=== PATIENT | male | born 1990 | race African-American/Black ===

== ENCOUNTER 2022-02-01 01:45 | Inpatient (IN) | payer BC ==
[~2022-02-01] VITALS: Ht 185.4 cm; Wt 112.2 kg
--- NOTE | 2022-02-01 02:21 | PHYS DOC ---
General Adult HPI: HPI: Patient is a 31 year old male who presents with chest pain, which awoke him from sleep, about 2 hours prior to arrival. He describes left-sided chest pain, rating to his back. He describes the pain as an ache. He denies any pleuritic pain. He reports mild shortness of breath. He denies dizziness or diaphoresis. He denies abdominal pain. He has no pain at present. He has never previously experienced the same type of chest pain. He reports that he has had diffuse muscle aches since he began vigorously working out lifting heavy weights earlier this week. He had not worked out in many years, but he was trying to become healthy. He reports that his father had a heart transplant when he was young, though this sounds like this may been related to some sort of infectious cardiomyopathy, and he reports that his paternal uncle had an [place] when he was in his early 30s. The patient does not currently her primary care physician, has not been seen by a PCP in some time. He denies recent travel, surgery, hospitalization or prolonged immobilization. He denies calf swelling or pain. Review of Systems: Review of Systems: Constitutional: Denies fever or chills. [] Eyes: Denies change in visual acuity. [] HENT: Denies nasal congestion or sore throat. [] Respiratory: Denies cough or shortness of breath. [] Cardiovascular: Chest pain. No peripheral edema. No syncope. GI: Denies abdominal pain, nausea, vomiting, or diarrhea : Denies urinary symptom Musculoskeletal: He does report some diffuse myalgias. No focal neck or back pain. No focal joint pain or swelling. Integument: Denies rash. [] Neurologic: Denies headache, focal weakness or sensory changes. Denies dizziness or syncope. Psychiatric: Denies depression or anxiety. [] Heart Score: C/O Chest Pain: Yes HEART Score for Chest Pain: HEART Score for Chest Pain Response (Comments) Value History Slighlty/Non-Suspicious 0 ECG Normal 0 Age < 45 0 Risk Factors 1 or 2 Risk Factors 1 Troponin >1-<3x Normal Limit 1 Total 2 Risk Factors: Risk Factors: DM, Current or recent (<one month) smoker, HTN, HLP, family history of CAD, obesity. Risk Scores: Score 0 - 3: 2.5% MACE over next 6 weeks - Discharge Home Score 4 - 6: 20.3% MACE over next 6 weeks - Admit for Clinical Observation Score 7 - 10: 72.7% MACE over next 6 weeks - Early Invasive Strategies Physical Exam: PE: Constitutional: Well developed, well nourished, no acute distress, non-toxic appearance. [] HENT: Normocephalic, atraumatic, bilateral external ears normal, oropharynx moist, no oral exudates, nose normal. [] Eyes: PERRLA, EOMI, conjunctiva normal, no discharge. [] Neck: Normal range of motion, no tenderness, supple, no stridor. [] Cardiovascular:Heart rate regular rhythm, no murmur [] Lungs & Thorax: Bilateral breath sounds clear to auscultation [] Abdomen: Bowel sounds normal, soft, no tenderness, no masses, no pulsatile masses. [] Skin: Warm, dry, no erythema, no rash. [] Back: No tenderness, no CVA tenderness. [] Extremities: No tenderness, no cyanosis, no clubbing, ROM intact, no edema. [] Neurologic: Alert and oriented X 3, normal motor function, normal sensory function, no focal deficits noted. [] Psychologic: Affect normal, judgement normal, mood normal. [] EKG: EKG: EKG is interpreted at 0235 Rhythm is sinus Rate is 87 bpm [place] is normal No STEMI Radiology/Procedures: Radiology/Procedures: IMAGING REPORT Signed PATIENT: JONAH SERRATO ACCOUNT: [id number] : 1990 LOCATION: ER AGE: 31 SEX: M EXAM STATUS: PRE ER ORD. PHYSICIAN: ESTEBAN RUFF DO REASON: chest pain PROCEDURE: PORTABLE CHEST 1V EXAMINATION: XR CHEST 1V CLINICAL HISTORY: Chest pain. EXAM DATE/TIME: 02/01/2022 2:38 AM COMPARISON: None FINDINGS: Lines, Tubes, and Devices: None. Cardiomediastinal Silhouette: Within normal limits. Lungs and Pleura: No evidence of focal airspace consolidation or pleural effusion. Pulmonary vasculature unremarkable. Bones and Soft Tissues: No acute osseous abnormality. IMPRESSION: No evidence of acute cardiopulmonary abnormality. Electronically signed by: Norbert Hamilton DO (02/01/2022 4:13 AM) GYPSY DICTATED and SIGNED BY: NORBERT HAMILTON DO DATE: 02/01/22411 IMAGING REPORT Signed PATIENT: JONAH SERRATO ACCOUNT: [id number] : 1990 LOCATION: ER AGE: 31 SEX: M EXAM STATUS: PRE ER ORD. PHYSICIAN: ESTEBAN RUFF DO REASON: chest pain, elevated trop and d dimer, omni 350 100 ml iv PROCEDURE: CT ANGIOGRAPHY CHEST EXAMINATION: CTA CHEST CLINICAL HISTORY: Chest pain, elevated trop and d dimer. Technique: Spiral CT acquisition of the chest from the thoracic inlet to the upper abdomen following IV contrast with coronal and sagittal reformatted images also provided for review. 3D maximum intensity projection images also performed. CT Dose Reduction Employed: One or more of the following individualized dose reduction techniques were utilized for this examination: 1. Automated exposure control 2. Adjustment of the mA and/or kV according to patient size 3. Use of iterative reconstruction technique. COMPARISON: Chest radiograph same day FINDINGS: Pulmonary Vasculature: No evidence of main, lobar, or definite segmental pulmonary arterial thrombus. Lung Parenchyma, Pleura, and Airways: No focal consolidation. No pleural effusion. Central airways patent. Lower Neck, Lymph Nodes, and Mediastinum: Visualized thyroid gland within normal limits. Mediastinal and right hilar old calcified granulomas. Heart, Pericardium, and Thoracic Vessels: Cardiac chambers normal in size. No pericardial effusion. Thoracic aorta within normal limits. No coronary artery atherosclerotic calcifications are noted, although the study is not optimized for coronary assessment. Bones and Soft Tissues: No evidence of acute osseous abnormality. Upper Abdomen: Partially visualized upper abdomen unremarkable. IMPRESSION: No evidence of main, lobar, or definite segmental pulmonary embolism. Electronically signed by: Norbert Hamilton DO (02/01/2022 5:22 AM) [facility] DICTATED and SIGNED BY: NORBERT HAMILTON DO DATE: 02/01/22517 Course & Med Decision Making: Course & Med Decision Making Pertinent Labs and Imaging studies reviewed. (See chart for details) The patient's pain remained resolved here. He is given p.o. aspirin. His initial troponin is elevated, though CPK came back markedly elevated. This is likely secondary to vigorous exercise. I ordered 2 L of IV fluids down here, he was taken to the floor before they were initiated, and major the nurse contacted the floor to make sure that these were given. I ordered maintenance fluids for the floor. Serial CPK, BMP and troponin assays are ordered and pending at this time. I have discussed the findings, differential diagnosis and plan of care with him. I recommended hospitalization. He verbalizes understanding. He is accepted for admission by Dr. Tomas. Dragon Disclaimer: Tali Disclaimer: This electronic medical record was generated, in whole or in part, using a voice recognition dictation system. Departure Departure Impression: Primary Impression: Chest pain Qualified Codes: R07.9 - Chest pain, unspecified Additional Impressions: Elevated troponin Rhabdomyolysis Qualified Codes: M62.82 - Rhabdomyolysis Disposition: ADMITTED INPATIENT Admitting Physician: LORI (Dr. Tomas) Condition: STABLE SPEEDYESTEBAN NEVAREZ DO Feb 01, 2022 02:21
[2022-02-01] MEDS ORDERED: KETOROLAC 15 MG/ML VIAL. IVP ONE (03:00)
[2022-02-01 03:03] LABS: BASO # 0.1 x10^3/uL (0.0-0.2); BASO % 1 % (0-3); EOS # 0.1 x10^3/uL (0.0-0.7); EOS % 2 % (0-3); HEMATOCRIT 45.1 % (39.0-53.0); HEMOGLOBIN 15.3 g/dL (13.0-17.5); LYMPH # 2.7 x10^3/uL (1.0-4.8); LYMPH % 33 % (24-48); MEAN CORPUSCULAR HEMOGLOBIN 30 pg (25-35); MEAN CORPUSCULAR HGB CONC 34 g/dL (31-37); MEAN CORPUSCULAR VOLUME 89 fL (79-100); MONO % 12 % (0-9); NEUT # 4.3 x10^3/uL (1.8-7.7); NEUT % 53 % (31-73); PLATELET COUNT 209 x10^3/uL (140-400); RED BLOOD COUNT 5.08 x10^6/uL (4.30-5.70); RED CELL DISTRIBUTION WIDTH 13.1 % (11.5-14.5); WHITE BLOOD COUNT 8.1 x10^3/uL (4.0-11.0)
[2022-02-01 03:15] LABS: CALCIUM 9.1 mg/dL (8.5-10.1); CREATININE 1.3 mg/dL (0.7-1.3); GFR 64.4; POTASSIUM 3.9 mmol/L (3.5-5.1)
[2022-02-01 03:26] LABS: ALBUMIN/GLOBULIN RATIO 1.1 (1.0-1.7); MAGNESIUM 2.3 mg/dL (1.8-2.4); TOTAL BILIRUBIN 0.5 mg/dL (0.2-1.0); TOTAL PROTEIN 7.6 g/dL (6.4-8.2)
--- NOTE | 2022-02-01 03:59 | EKG ---
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
[2022-02-01] MEDS ORDERED: CONTRAST GIVEN. MC PRN (04:00)
--- NOTE | 2022-02-01 04:15 | RAD ---
EXAMINATION: XR CHEST 1V CLINICAL HISTORY: Chest pain. EXAM DATE/TIME: 02/01/2022 2:38 AM COMPARISON: None FINDINGS: Lines, Tubes, and Devices: None. Cardiomediastinal Silhouette: Within normal limits. Lungs and Pleura: No evidence of focal airspace consolidation or pleural effusion. Pulmonary vasculat ure unremarkable. Bones and Soft Tissues: No acute osseous abnormality. IMPRESSION: No evidence of acute cardiopulmonary abnormality. Electronically signed by: Norbert Mann DO (02/01/2022 4:13 AM) TIM
[2022-02-01] MEDS ORDERED: ASPIRIN ENTERIC COATED 325 MG TABLET.DR. PO ONE (04:30)
[2022-02-01] MEDS ORDERED: IOHEXOL 350 MG/ML 100 ML VIAL. IV ONE (04:30)
--- NOTE | 2022-02-01 05:24 | RAD ---
EXAMINATION: CTA CHEST CLINICAL HISTORY: Chest pain, elevated trop and d dimer. Technique: Spiral CT acquisition of the chest from the thoracic inlet to the upper abdomen following IV contrast with coronal and sagittal reformatted images also provided for review. 3D maximum intensi ty projection images also performed. CT Dose Reduction Employed: One or more of the following individualized dose reduction techniques wer e utilized for this examination: 1. Automated exposure control 2. Adjustment of the mA and/or kV ac cording to patient size 3. Use of iterative reconstruction technique. COMPARISON: Chest radiograph same day FINDINGS: Pulmonary Vasculature: No evidence of main, lobar, or definite segmental pulmonary arterial thrombus. Lung Parenchyma, Pleura, and Airways: No focal consolidation. No pleural effusion. Central airways pa tent. Lower Neck, Lymph Nodes, and Mediastinum: Visualized thyroid gland within normal limits. Mediastinal and right hilar old calcified granulomas. Heart, Pericardium, and Thoracic Vessels: Cardiac chambers normal in size. No pericardial effusion. T horacic aorta within normal limits. No coronary artery atherosclerotic calcifications are noted, alth ough the study is not optimized for coronary assessment. Bones and Soft Tissues: No evidence of acute osseous abnormality. Upper Abdomen: Partially visualized upper abdomen unremarkable. IMPRESSION: No evidence of main, lobar, or definite segmental pulmonary embolism. Electronically signed by: Norbert Mann DO (02/01/2022 5:22 AM) [facility]
[2022-02-01] MEDS ORDERED: IV NORMAL SALINE 1000ML BAG 1,000 ML IV ONE ×3 (06:00→06:30)
[2022-02-01] MEDS ORDERED: ONDANSETRON PF 4 MG/2 ML VIAL. IVP PRN ×2 (06:15→07:45)
[2022-02-01] MEDS ORDERED: ACETAMINOPHEN 325 MG TABLET. PO PRN ×2 (06:15→07:45)
[2022-02-01 06:37] VITALS: BP 125/80
[2022-02-01] MEDS ORDERED: fentaNYL PF VIAL 100 MCG/2 ML VIAL IVP PRN (07:45)
[2022-02-01] MEDS ORDERED: traMADol 50 MG TABLET PO PRN (07:45)
[2022-02-01] MEDS ORDERED: NITROGLYCERIN SUBLINGUAL 0.4 MG BOTTLE OF 25. SL PRN (07:45)
--- NOTE | 2022-02-01 08:53 | PDOC1 ---
History and Physical Date of Service: DOS: DATE: 02/01/22 TIME: 08:46 Chief Complaint: Chief Complain: Chest pain. History of Present Illness: HPI: 31-year-old male with no significant past medical history who comes in from difficulty sleeping due to chest pain 2 hours before coming to the ED. Patient describes chest pain as left-sided and radiating to his back. Achiness in nature and denies any chest pain with shortness of breath or deep inspiration. Denies any fevers or abdominal pain. Patient stated that he started working out earlier this week on Wednesday by lifting weights at the gym and he was trying to become more healthy. Patient does have a familial history of father having a heart transplant when he was young due to infectious cardiomyopathy and he had an uncle had an [place] when his early 30s. Patient also had old wild night on Wednesday night going out and drinking and also having cocaine. He has only been sleeping 5 hours per night. Patient does dabble in protein supplements at [employer] with his protein shakes. Denies any intentional overdose or suicidal intentions. Denies any recent travel, surgery or immobilization or calf pain. Past Medical/Surgical History: PMH/PSH: No reported past medical or surgical history Allergies: Allergies: Coded Allergies: No Known Drug Allergies (Unverified , 02/01/22) Family History: Family History: Reviewed with no relative findings in the chart Social History: Social History: Denies any alcohol, drug or tobacco abuse Current Medications: Current Medications Current Medications Ketorolac Tromethamine (Toradol 15mg Vial) 15 mg 1X ONCE IVP ; Start 02/01/22 at 03:00; Stop 02/01/22 at 03:01; Status DC Iohexol (Omnipaque 350 Mg/ml) 75 ml 1X ONCE IV Last administered on 02/01/22at 04:57; Start 02/01/22 at 04:30; Stop 02/01/22 at 04:31; Status DC Aspirin (Ecotrin) 325 mg 1X ONCE PO Last administered on 02/01/22at 04:07; Start 02/01/22 at 04:30; Stop 02/01/22 at 04:31; Status DC Info (CONTRAST GIVEN -- Rx MONITORING) 1 each PRN DAILY PRN MC SEE COMMENTS; Start 02/01/22 at 04:00; Stop 02/03/22 at 03:59 Sodium Chloride 1,000 ml @ 1,000 mls/hr 1X ONCE IV ; Start 02/01/22 at 06:00; Stop 02/01/22 at 06:59; Status DC Sodium Chloride 1,000 ml @ 1,000 mls/hr 1X ONCE IV ; Start 02/01/22 at 06:30; Stop 02/01/22 at 07:29; Status DC Ondansetron HCl (Zofran) 4 mg PRN Q8HRS PRN IVP NAUSEA/VOMITING 1ST CHOICE; Start 02/01/22 at 06:15; Stop 02/01/22 at 07:34; Status DC Acetaminophen (Tylenol) 650 mg PRN Q4HRS PRN PO MILD PAIN / TEMP > 100.3'F; Start 02/01/22 at 06:15 Sodium Chloride 1,000 ml @ 200 mls/hr 1X ONCE IV ; Start 02/01/22 at 06:30; Stop 02/01/22 at 11:29 Sodium Chloride 1,000 ml @ 200 mls/hr Q5H IV ; Start 02/01/22 at 07:30; Stop 02/02/22 at 08:29 Ondansetron HCl (Zofran) 4 mg PRN Q4HRS PRN IVP NAUSEA/VOMITING 1ST CHOICE; Start 02/01/22 at 07:45 Acetaminophen (Tylenol) 650 mg PRN Q6HRS PRN PO MILD PAIN / TEMP > 100.3'F; Start 02/01/22 at 07:45 Aspirin (Ecotrin) 81 mg DAILYWBKFT PO ; Start 02/02/22 at 08:00 Fentanyl Citrate (Fentanyl 2ml Vial) 25 mcg PRN Q3HRS PRN IVP SEVERE PAIN 7-10; Start 02/01/22 at 07:45 Nitroglycerin (Nitrostat) 0.4 mg PRN Q5MIN PRN SL CHEST PAIN; Start 02/01/22 at 07:45 Tramadol HCl (Ultram) 50 mg PRN Q6HRS PRN PO PAIN; Start 02/01/22 at 07:45 ROS: Review of Systems Review of System REVIEW OF SYSTEMS: GENERAL: Denies weakness SKIN: No bruising, hair changes or rashes. EYES: No blurred, double or loss of vision. NOSE AND THROAT: No history of nosebleeds, hoarseness or sore throat. HEART: Positive for chest pain LUNGS: Denies cough, hemoptysis, wheezing or shortness of breath. GASTROINTESTINAL: Denies changes in appetite, nausea, vomiting, diarrhea or constipation. GENITOURINARY: No history of frequency, urgency, hesitancy or nocturia. NEUROLOGIC: Denies history of numbness, tingling, or tremor. PSYCHIATRIC: No history of panic, anxiety or depression. ENDOCRINE: No history of heat or cold intolerance, polyuria or polydipsia. EXTREMITIES: Denies joint pain, pain on walking or stiffness. Physical Exam: Vital Signs: Vital Signs Date Time Temp Pulse Resp B/P (MAP) Pulse Ox O2 Delivery O2 Flow Rate FiO2 02/01/22 06:37 97.9 79 20 125/80 (95) 98 Room Air 97.9 Physcial Exam: General: Well developed, well nourished, no acute distress, well appearing HEENT: Pupils equally round and reactive to light, EOMI, no discharge, normal conjunctiva Neck: Supple, no nuchal rigidity, no JVD, trachea midline, no tenderness Cardiac: RRR, no murmurs, no gallops, no rubs Chest/Lungs: CTAB, no wheeze, no rhonchi, no crackles Abdomen: soft, non-distended, no guarding, no peritoneal signs, non-tender Back: No tenderness Extremities: no edema, pulses intact, non-tender,capillary refill <3 sec bilateral upper and lower extremities, Neuro: Alert and oriented x 4, no focal deficits, normal speech Labs: Labs: Laboratory Tests Test 02/01/22 02:53 02/01/22 05:40 White Blood Count 8.1 x10^3/uL (4.0-11.0) Red Blood Count 5.08 x10^6/uL (4.30-5.70) Hemoglobin 15.3 g/dL (13.0-17.5) Hematocrit 45.1 % (39.0-53.0) Mean Corpuscular Volume 89 fL (79-100) Mean Corpuscular Hemoglobin 30 pg (25-35) Mean Corpuscular Hemoglobin Concent 34 g/dL (31-37) Red Cell Distribution Width 13.1 % (11.5-14.5) Platelet Count 209 x10^3/uL (140-400) Neutrophils (%) (Auto) 53 % (31-73) Lymphocytes (%) (Auto) 33 % (24-48) Monocytes (%) (Auto) 12 % (0-9) Eosinophils (%) (Auto) 2 % (0-3) Basophils (%) (Auto) 1 % (0-3) Neutrophils # (Auto) 4.3 x10^3/uL (1.8-7.7) Lymphocytes # (Auto) 2.7 x10^3/uL (1.0-4.8) Monocytes # (Auto) 1.0 x10^3/uL (0.0-1.1) Eosinophils # (Auto) 0.1 x10^3/uL (0.0-0.7) Basophils # (Auto) 0.1 x10^3/uL (0.0-0.2) D-Dimer (Karine) 4.75 ug/mlFEU (0.00-0.50) Sodium Level 139 mmol/L (136-145) Potassium Level 3.9 mmol/L (3.5-5.1) Chloride Level 103 mmol/L (98-107) Carbon Dioxide Level 25 mmol/L (21-32) Anion Gap 11 (6-14) Blood Urea Nitrogen 16 mg/dL (8-26) Creatinine 1.3 mg/dL (0.7-1.3) Estimated GFR (Cockcroft-Gault) 64.4 BUN/Creatinine Ratio 12 (6-20) Glucose Level 85 mg/dL (70-99) Calcium Level 9.1 mg/dL (8.5-10.1) Magnesium Level 2.3 mg/dL (1.8-2.4) Total Bilirubin 0.5 mg/dL (0.2-1.0) Aspartate Amino Transf (AST/SGOT) 2147 U/L (15-37) Alanine Aminotransferase (ALT/SGPT) 933 U/L (16-63) Alkaline Phosphatase 47 U/L (46-116) Creatine Kinase 235195 U/L (39-308) Troponin I High Sensitivity 76 ng/L (4-75) 63 ng/L (4-75) ZF-Wke-K-Type Natriuretic Peptide 11 pg/mL (0-124) Total Protein 7.6 g/dL (6.4-8.2) Albumin 4.0 g/dL (3.4-5.0) Albumin/Globulin Ratio 1.1 (1.0-1.7) Lipase 138 U/L (73-393) Laboratory Tests Test 02/01/22 02:53 02/01/22 05:40 White Blood Count 8.1 x10^3/uL (4.0-11.0) Red Blood Count 5.08 x10^6/uL (4.30-5.70) Hemoglobin 15.3 g/dL (13.0-17.5) Hematocrit 45.1 % (39.0-53.0) Mean Corpuscular Volume 89 fL (79-100) Mean Corpuscular Hemoglobin 30 pg (25-35) Mean Corpuscular Hemoglobin Concent 34 g/dL (31-37) Red Cell Distribution Width 13.1 % (11.5-14.5) Platelet Count 209 x10^3/uL (140-400) Neutrophils (%) (Auto) 53 % (31-73) Lymphocytes (%) (Auto) 33 % (24-48) Monocytes (%) (Auto) 12 % (0-9) Eosinophils (%) (Auto) 2 % (0-3) Basophils (%) (Auto) 1 % (0-3) Neutrophils # (Auto) 4.3 x10^3/uL (1.8-7.7) Lymphocytes # (Auto) 2.7 x10^3/uL (1.0-4.8) Monocytes # (Auto) 1.0 x10^3/uL (0.0-1.1) Eosinophils # (Auto) 0.1 x10^3/uL (0.0-0.7) Basophils # (Auto) 0.1 x10^3/uL (0.0-0.2) D-Dimer (Karine) 4.75 ug/mlFEU (0.00-0.50) Sodium Level 139 mmol/L (136-145) Potassium Level 3.9 mmol/L (3.5-5.1) Chloride Level 103 mmol/L (98-107) Carbon Dioxide Level 25 mmol/L (21-32) Anion Gap 11 (6-14) Blood Urea Nitrogen 16 mg/dL (8-26) Creatinine 1.3 mg/dL (0.7-1.3) Estimated GFR (Cockcroft-Gault) 64.4 BUN/Creatinine Ratio 12 (6-20) Glucose Level 85 mg/dL (70-99) Calcium Level 9.1 mg/dL (8.5-10.1) Magnesium Level 2.3 mg/dL (1.8-2.4) Total Bilirubin 0.5 mg/dL (0.2-1.0) Aspartate Amino Transf (AST/SGOT) 2147 U/L (15-37) Alanine Aminotransferase (ALT/SGPT) 933 U/L (16-63) Alkaline Phosphatase 47 U/L (46-116) Creatine Kinase 123992 U/L (39-308) Troponin I High Sensitivity 76 ng/L (4-75) 63 ng/L (4-75) QP-Uzk-Z-Type Natriuretic Peptide 11 pg/mL (0-124) Total Protein 7.6 g/dL (6.4-8.2) Albumin 4.0 g/dL (3.4-5.0) Albumin/Globulin Ratio 1.1 (1.0-1.7) Lipase 138 U/L (73-393) Images: Images PROCEDURE: CT ANGIOGRAPHY CHEST EXAMINATION: CTA CHEST CLINICAL HISTORY: Chest pain, elevated trop and d dimer. Technique: Spiral CT acquisition of the chest from the thoracic inlet to the upper abdomen following IV contrast with coronal and sagittal reformatted images also provided for review. 3D maximum intensity projection images also performed. CT Dose Reduction Employed: One or more of the following individualized dose re duction techniques were utilized for this examination: 1. Automated exposure control 2. Adjustment of the mA and/or kV according to patient size 3. Use of iterative reconstruction technique. COMPARISON: Chest radiograph same day FINDINGS: Pulmonary Vasculature: No evidence of main, lobar, or definite segmental pulmonary arterial thrombus. Lung Parenchyma, Pleura, and Airways: No focal consolidation. No pleural effusion. Central airways patent. Lower Neck, Lymph Nodes, and Mediastinum: Visualized thyroid gland within normal limits. Mediastinal and right hilar old calcified granulomas. Heart, Pericardium, and Thoracic Vessels: Cardiac chambers normal in size. No pericardial effusion. Thoracic aorta within normal limits. No coronary artery atherosclerotic calcifications are noted, although the study is not optimized for coronary assessment. Bones and Soft Tissues: No evidence of acute osseous abnormality. Upper Abdomen: Partially visualized upper abdomen unremarkable. IMPRESSION: No evidence of main, lobar, or definite segmental pulmonary embolism. PROCEDURE: PORTABLE CHEST 1V EXAMINATION: XR CHEST 1V CLINICAL HISTORY: Chest pain. EXAM DATE/TIME: 02/01/2022 2:38 AM COMPARISON: None FINDINGS: Lines, Tubes, and Devices: None. Cardiomediastinal Silhouette: Within normal limits. Lungs and Pleura: No evidence of focal airspace consolidation or pleural effusion. Pulmonary vasculature unremarkable. Bones and Soft Tissues: No acute osseous abnormality. IMPRESSION: No evidence of acute cardiopulmonary abnormality. Assessment/Plan Assessment/Plan Acute rhabdomyolysis Severe transaminitis Atypical chest pain, likely musculoskeletal rule out ACS Obesity class I Admit to hospitalist service for further management Cardiology consult Continue telemetry monitoring Nephrology consult for rhabdomyolysis Strict I's/O Avoid nephrotoxic agents Monitor urine output closely Continue aggressive IV fluid rehydration Pending hepatitis panel Trend liver enzymes Trend CK levels SCD and ambulation for DVT prophylaxis Regular diet CODE STATUS full Discussed with RN and SW Disposition inpatient management as above DPOA: Father Justifications for Admission Other Justification TAYLOR DIA MD Feb 01, 2022 08:53
[2022-02-01 09:42] LABS: BACTERIA,URINE 0 /HPF (0-FEW); RBC,URINE OCC /HPF (0-2); WBC,URINE OCC /HPF (0-4)
[2022-02-01 09:53] LABS: CALCIUM 9.1 mg/dL (8.5-10.1); CREATININE 1.3 mg/dL (0.7-1.3); GFR 77.9; POTASSIUM 4.4 mmol/L (3.5-5.1)
[2022-02-01 11:00] VITALS: BP 151/65
[2022-02-01] MEDS: IV NORMAL SALINE 1000ML BAG 1,000 ML IV SCH ×4 (11:36→22:30)
--- NOTE | 2022-02-01 12:15 | PDOC2 ---
CARDIOLOGY CONSULT NOTE DATE OF SERVICE: DATE: 02/01/22 TIME: 12:12 CHIEF COMPLAINT: Chest pain HPI: 31 y.o male admitted for rhabdo and atypical chest pain. He admits to working out heavily this last week and also 2 days prior to admission he used cocaine and drank heavily. In the setting he was admitted and initial troponin was elevated although his CK was greater than 100,000. He currently denies any anginal symptoms. Actually he was working out on a bike about 3 days ago and did not have any exertional dyspnea or chest pain. 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 He admits to using cocaine and marijuana. FAMHX: Father had a heart transplant for viral cardiomyopathy CURRENT MEDS: Current Medications Medications (Trade) Dose Ordered Sig/Alma Route PRN Reason Start Time Stop Time Status Last Admin Dose Admin Iohexol (Omnipaque 350 Mg/ml) 75 ml 1X ONCE IV 02/01/22 04:30 02/01/22 04:31 DC 02/01/22 04:57 Aspirin (Ecotrin) 325 mg 1X ONCE PO 02/01/22 04:30 02/01/22 04:31 DC 02/01/22 04:07 Sodium Chloride 1,000 ml @ 1,000 mls/hr 1X ONCE IV 02/01/22 06:00 02/01/22 06:59 DC 02/01/22 09:18 Sodium Chloride 1,000 ml @ 1,000 mls/hr 1X ONCE IV 02/01/22 06:30 02/01/22 07:29 DC 02/01/22 10:21 Sodium Chloride 1,000 ml @ 200 mls/hr Q5H IV 02/01/22 07:30 02/02/22 08:29 02/01/22 11:36 ALLERGIES: Allergies Coded Allergies Type Severity Reaction Last Updated Verified No Known Drug Allergies 02/01/22 No ROS: Negative for 10 out of 14 systems reviewed unless otherwise mentioned above in HPI PHYSICAL EXAM: Vital Signs/I&O: Vital Signs Date Time Temp Pulse Resp B/P (MAP) Pulse Ox O2 Delivery O2 Flow Rate FiO2 02/01/22 06:37 97.9 79 20 125/80 (95) 98 Room Air 97.9 Physical Exam: GEN.: No apparent distress. Alert and oriented. HEENT: Head is normocephalic, atraumatic NECK: Supple. LUNGS: Clear to auscultation. HEART: RRR, S1, S2 present. Peripheral pulses intact ABDOMEN: Soft, nontender. Positive bowel sounds. EXTREMITIES: Without any cyanosis. NEUROLOGIC: Normal speech, normal tone PSYCHIATRIC: Normal affect, normal mood. SKIN: No ulcerations DIAGNOSTIC TESTING: EKG is unremarkable Lab Laboratory Tests Test 02/01/22 02:53 02/01/22 05:40 02/01/22 08:45 02/01/22 09:10 White Blood Count 8.1 x10^3/uL (4.0-11.0) Red Blood Count 5.08 x10^6/uL (4.30-5.70) Hemoglobin 15.3 g/dL (13.0-17.5) Hematocrit 45.1 % (39.0-53.0) Mean Corpuscular Volume 89 fL (79-100) Mean Corpuscular Hemoglobin 30 pg (25-35) Mean Corpuscular Hemoglobin Concent 34 g/dL (31-37) Red Cell Distribution Width 13.1 % (11.5-14.5) Platelet Count 209 x10^3/uL (140-400) Neutrophils (%) (Auto) 53 % (31-73) Lymphocytes (%) (Auto) 33 % (24-48) Monocytes (%) (Auto) 12 % (0-9) H Eosinophils (%) (Auto) 2 % (0-3) Basophils (%) (Auto) 1 % (0-3) Neutrophils # (Auto) 4.3 x10^3/uL (1.8-7.7) Lymphocytes # (Auto) 2.7 x10^3/uL (1.0-4.8) Monocytes # (Auto) 1.0 x10^3/uL (0.0-1.1) Eosinophils # (Auto) 0.1 x10^3/uL (0.0-0.7) Basophils # (Auto) 0.1 x10^3/uL (0.0-0.2) D-Dimer (Karine) 4.75 ug/mlFEU (0.00-0.50) H Sodium Level 139 mmol/L (136-145) 142 mmol/L (136-145) Potassium Level 3.9 mmol/L (3.5-5.1) 4.4 mmol/L (3.5-5.1) Chloride Level 103 mmol/L (98-107) 102 mmol/L (98-107) Carbon Dioxide Level 25 mmol/L (21-32) 28 mmol/L (21-32) Anion Gap 11 (6-14) 12 (6-14) Blood Urea Nitrogen 16 mg/dL (8-26) 14 mg/dL (8-26) Creatinine 1.3 mg/dL (0.7-1.3) 1.3 mg/dL (0.7-1.3) Estimated GFR (Cockcroft-Gault) 64.4 77.9 BUN/Creatinine Ratio 12 (6-20) Glucose Level 85 mg/dL (70-99) 74 mg/dL (70-99) Calcium Level 9.1 mg/dL (8.5-10.1) 9.1 mg/dL (8.5-10.1) Total Bilirubin 0.5 mg/dL (0.2-1.0) Aspartate Amino Transf (AST/SGOT) 2147 U/L (15-37) H Alkaline Phosphatase 47 U/L (46-116) Creatine Kinase 690216 U/L (39-308) H 443078 U/L (39-308) H Troponin I High Sensitivity 76 ng/L (4-75) H 63 ng/L (4-75) 62 ng/L (4-75) Total Protein 7.6 g/dL (6.4-8.2) Albumin 4.0 g/dL (3.4-5.0) Albumin/Globulin Ratio 1.1 (1.0-1.7) Lipase 138 U/L (73-393) Urine Collection Type Unknown Urine Color (Auto) Light yellow Urine Turbidity Clear Urine pH (Auto) 6.0 (<5.0-8.0) Urine Specific [place] >1.050 (1.000-1.030) Urine Protein (Auto) 50 mg/dL (Negative) Urine Glucose (Auto)(UA) Negative mg/dL (Negative) Urine Ketones (Auto) 80 mg/dL (Negative) Urine Blood (Auto) Moderate (Negative) Urine Nitrite Negative (Negative) Urine Bilirubin (Auto) Negative (Negative) Urine Urobilinogen (Auto) Normal mg/dL (Normal) Urine Leukocyte Esterase (Auto) Negative (Negative) Urine RBC Occ /HPF (0-2) Urine WBC Occ /HPF (0-4) Urine Squamous Epithelial Cells Occ /LPF Urine Bacteria 0 /HPF (0-FEW) Laboratory Tests 02/01/22 02:53 02/01/22 08:45 ASSESSMENT: 1. Rhabdomyolysis 2. Polysubstance abuse PLAN: 1. No further cardiac testing necessary at this time. Continue IV fluid hydration and may discharge from a cardiac perspective when cleared by the primary service. Thank you for this consultation SELINA HAIR MD Feb 01, 2022 12:15
--- NOTE | 2022-02-01 13:15 | PDOC2 ---
CONSULT Date of Consult Date of Consult DATE: 02/01/22 TIME: 13:11 Reason for Consult Reason for Consult: Rhabdomyolysis Referring Physician Referring Physician: Genoveva Identification/Chief Complaint Chief Complaint Chest pain Source Source: Patient History of Present Illness Reason for Visit: 31-year-old male with no significant past medical history. He presented to the ER with new onset chest pain on his left side radiating to his back. He deemed it to be more of an ache than a true sharp stabbing pain. Work-up revealed extremely elevated CPK of 125,000 which is now down to 90,000. He has been evaluated by cardiology. He claims he had started a new workout regimen earlier in the week by lifting weight at the gym and becoming more healthy. He also had a wild night out on Wednesday drinking and also you may have used some cocaine. He claims a few days ago his urine was dark but has lightened up over the last few days. He does use some protein supplements. Denies any new complaints at this time. Urine has cleared up significantly by his reports. He claims to be urinating well. Past Medical History Past Medical History No past medical history Family History Family History Father had cardiomyopathy required heart transplant, uncle has heart issues, no kidney problems in the family Current Problem List Problem List Problems Medical Problems: (1) Chest pain Status: Acute (2) Elevated troponin Status: Acute (3) Rhabdomyolysis Status: Acute Current Medications Current Medications Current Medications Ketorolac Tromethamine (Toradol 15mg Vial) 15 mg 1X ONCE IVP ; Start 02/01/22 at 03:00; Stop 02/01/22 at 03:01; Status DC Iohexol (Omnipaque 350 Mg/ml) 75 ml 1X ONCE IV Last administered on 02/01/22at 04:57; Start 02/01/22 at 04:30; Stop 02/01/22 at 04:31; Status DC Aspirin (Ecotrin) 325 mg 1X ONCE PO Last administered on 02/01/22at 04:07; Start 02/01/22 at 04:30; Stop 02/01/22 at 04:31; Status DC Info (CONTRAST GIVEN -- Rx MONITORING) 1 each PRN DAILY PRN MC SEE COMMENTS; Start 02/01/22 at 04:00; Stop 02/03/22 at 03:59 Sodium Chloride 1,000 ml @ 1,000 mls/hr 1X ONCE IV Last administered on 02/01/22at 09:18; Start 02/01/22 at 06:00; Stop 02/01/22 at 06:59; Status DC Sodium Chloride 1,000 ml @ 1,000 mls/hr 1X ONCE IV Last administered on at 10:21; Start 02/01/22 at 06:30; Stop 02/01/22 at 07:29; Status DC Ondansetron HCl (Zofran) 4 mg PRN Q8HRS PRN IVP NAUSEA/VOMITING 1ST CHOICE; Start 02/01/22 at 06:15; Stop 02/01/22 at 07:34; Status DC Acetaminophen (Tylenol) 650 mg PRN Q4HRS PRN PO MILD PAIN / TEMP > 100.3'F; Start 02/01/22 at 06:15 Sodium Chloride 1,000 ml @ 200 mls/hr 1X ONCE IV ; Start 02/01/22 at 06:30; Stop 02/01/22 at 11:29; Status DC Sodium Chloride 1,000 ml @ 200 mls/hr Q5H IV Last administered on 02/01/22at 11:36; Start 02/01/22 at 07:30; Stop 02/02/22 at 08:29 Ondansetron HCl (Zofran) 4 mg PRN Q4HRS PRN IVP NAUSEA/VOMITING 1ST CHOICE; Start 02/01/22 at 07:45 Acetaminophen (Tylenol) 650 mg PRN Q6HRS PRN PO MILD PAIN / TEMP > 100.3'F; Start 02/01/22 at 07:45 Aspirin (Ecotrin) 81 mg DAILYWBKFT PO ; Start 02/02/22 at 08:00 Fentanyl Citrate (Fentanyl 2ml Vial) 25 mcg PRN Q3HRS PRN IVP SEVERE PAIN 7-10; Start 02/01/22 at 07:45 Nitroglycerin (Nitrostat) 0.4 mg PRN Q5MIN PRN SL CHEST PAIN; Start 02/01/22 at 07:45 Tramadol HCl (Ultram) 50 mg PRN Q6HRS PRN PO PAIN; Start 02/01/22 at 07:45 Active Scripts Active Reported No Known Medications Prior To Admisstion (Info) Each 1 Each MC 1X Allergies Allergies: Coded Allergies: No Known Drug Allergies (Unverified , 02/01/22) ROS Review of System Negative other than as reviewed under HPI Physical Exam Physical Exam General Appearance: Awake Alert Oriented x 3 In no Distress Eyes: VIsion Unchanged Conjunctiva Normal EN: No EN Drainage Mucous Memb. moist Neck: no JVD no JVP Supple no Thyromegaly CVS: S1 S2 no Murmur No Gallop No Rub no Edema Resp: no Rales no Rhonchi no Acc. Muscle use GI: BAS +ve NO Bruit Non Tender Non Distended : no CVA tenderness; no Suprapubic Tenderness Vital Signs Vital Signs Date Time Temp Pulse Resp B/P (MAP) Pulse Ox O2 Delivery O2 Flow Rate FiO2 02/01/22 11:00 98.1 70 16 151/65 (93) 97 Room Air 98.1 Assessment & Plan Rhabdomyolysis: Presumably associated with her current regimen. Recent alcohol use and/or cocaine use may be contributing also. Continue IV fluids as you are doing, CPKs trending downwards. Check serial CPKs. Monitor urine output marti sely which she claims is adequate at this time. Await UDS Labs Labs Laboratory Tests Test 02/01/22 02:53 02/01/22 05:40 02/01/22 08:45 02/01/22 09:10 White Blood Count 8.1 x10^3/uL (4.0-11.0) Red Blood Count 5.08 x10^6/uL (4.30-5.70) Hemoglobin 15.3 g/dL (13.0-17.5) Hematocrit 45.1 % (39.0-53.0) Mean Corpuscular Volume 89 fL (79-100) Mean Corpuscular Hemoglobin 30 pg (25-35) Mean Corpuscular Hemoglobin Concent 34 g/dL (31-37) Red Cell Distribution Width 13.1 % (11.5-14.5) Platelet Count 209 x10^3/uL (140-400) Neutrophils (%) (Auto) 53 % (31-73) Lymphocytes (%) (Auto) 33 % (24-48) Monocytes (%) (Auto) 12 % (0-9) Eosinophils (%) (Auto) 2 % (0-3) Basophils (%) (Auto) 1 % (0-3) Neutrophils # (Auto) 4.3 x10^3/uL (1.8-7.7) Lymphocytes # (Auto) 2.7 x10^3/uL (1.0-4.8) Monocytes # (Auto) 1.0 x10^3/uL (0.0-1.1) Eosinophils # (Auto) 0.1 x10^3/uL (0.0-0.7) Basophils # (Auto) 0.1 x10^3/uL (0.0-0.2) D-Dimer (Karine) 4.75 ug/mlFEU (0.00-0.50) Sodium Level 139 mmol/L (136-145) 142 mmol/L (136-145) Potassium Level 3.9 mmol/L (3.5-5.1) 4.4 mmol/L (3.5-5.1) Chloride Level 103 mmol/L (98-107) 102 mmol/L (98-107) Carbon Dioxide Level 25 mmol/L (21-32) 28 mmol/L (21-32) Anion Gap 11 (6-14) 12 (6-14) Blood Urea Nitrogen 16 mg/dL (8-26) 14 mg/dL (8-26) Creatinine 1.3 mg/dL (0.7-1.3) 1.3 mg/dL (0.7-1.3) Estimated GFR (Cockcroft-Gault) 64.4 77.9 BUN/Creatinine Ratio 12 (6-20) Glucose Level 85 mg/dL (70-99) 74 mg/dL (70-99) Calcium Level 9.1 mg/dL (8.5-10.1) 9.1 mg/dL (8.5-10.1) Magnesium Level 2.3 mg/dL (1.8-2.4) Total Bilirubin 0.5 mg/dL (0.2-1.0) Aspartate Amino Transf (AST/SGOT) 2147 U/L (15-37) Alanine Aminotransferase (ALT/SGPT) 933 U/L (16-63) Alkaline Phosphatase 47 U/L (46-116) Creatine Kinase 105923 U/L (39-308) 774987 U/L (39-308) Troponin I High Sensitivity 76 ng/L (4-75) 63 ng/L (4-75) 62 ng/L (4-75) BE-Kof-E-Type Natriuretic Peptide 11 pg/mL (0-124) Total Protein 7.6 g/dL (6.4-8.2) Albumin 4.0 g/dL (3.4-5.0) Albumin/Globulin Ratio 1.1 (1.0-1.7) Lipase 138 U/L (73-393) Urine Collection Type Unknown Urine Color (Auto) Light yellow Urine Turbidity Clear Urine pH (Auto) 6.0 (<5.0-8.0) Urine Specific [place] >1.050 (1.000-1.030) Urine Protein (Auto) 50 mg/dL (Negative) Urine Glucose (Auto)(UA) Negative mg/dL (Negative) Urine Ketones (Auto) 80 mg/dL (Negative) Urine Blood (Auto) Moderate (Negative) Urine Nitrite Negative (Negative) Urine Bilirubin (Auto) Negative (Negative) Urine Urobilinogen (Auto) Normal mg/dL (Normal) Urine Leukocyte Esterase (Auto) Negative (Negative) Urine RBC Occ /HPF (0-2) Urine WBC Occ /HPF (0-4) Urine Squamous Epithelial Cells Occ /LPF Urine Bacteria 0 /HPF (0-FEW) Test 02/01/22 11:20 Creatine Kinase 75270 U/L (39-308) Laboratory Tests Test 02/01/22 02:53 02/01/22 05:40 02/01/22 08:45 02/01/22 09:10 White Blood Count 8.1 x10^3/uL (4.0-11.0) Red Blood Count 5.08 x10^6/uL (4.30-5.70) Hemoglobin 15.3 g/dL (13.0-17.5) Hematocrit 45.1 % (39.0-53.0) Mean Corpuscular Volume 89 fL (79-100) Mean Corpuscular Hemoglobin 30 pg (25-35) Mean Corpuscular Hemoglobin Concent 34 g/dL (31-37) Red Cell Distribution Width 13.1 % (11.5-14.5) Platelet Count 209 x10^3/uL (140-400) Neutrophils (%) (Auto) 53 % (31-73) Lymphocytes (%) (Auto) 33 % (24-48) Monocytes (%) (Auto) 12 % (0-9) Eosinophils (%) (Auto) 2 % (0-3) Basophils (%) (Auto) 1 % (0-3) Neutrophils # (Auto) 4.3 x10^3/uL (1.8-7.7) Lymphocytes # (Auto) 2.7 x10^3/uL (1.0-4.8) Monocytes # (Auto) 1.0 x10^3/uL (0.0-1.1) Eosinophils # (Auto) 0.1 x10^3/uL (0.0-0.7) Basophils # (Auto) 0.1 x10^3/uL (0.0-0.2) D-Dimer (Karine) 4.75 ug/mlFEU (0.00-0.50) Sodium Level 139 mmol/L (136-145) 142 mmol/L (136-145) Potassium Level 3.9 mmol/L (3.5-5.1) 4.4 mmol/L (3.5-5.1) Chloride Level 103 mmol/L (98-107) 102 mmol/L (98-107) Carbon Dioxide Level 25 mmol/L (21-32) 28 mmol/L (21-32) Anion Gap 11 (6-14) 12 (6-14) Blood Urea Nitrogen 16 mg/dL (8-26) 14 mg/dL (8-26) Creatinine 1.3 mg/dL (0.7-1.3) 1.3 mg/dL (0.7-1.3) Estimated GFR (Cockcroft-Gault) 64.4 77.9 BUN/Creatinine Ratio 12 (6-20) Glucose Level 85 mg/dL (70-99) 74 mg/dL (70-99) Calcium Level 9.1 mg/dL (8.5-10.1) 9.1 mg/dL (8.5-10.1) Magnesium Level 2.3 mg/dL (1.8-2.4) Total Bilirubin 0.5 mg/dL (0.2-1.0) Aspartate Amino Transf (AST/SGOT) 2147 U/L (15-37) Alanine Aminotransferase (ALT/SGPT) 933 U/L (16-63) Alkaline Phosphatase 47 U/L (46-116) Creatine Kinase 258789 U/L (39-308) 772397 U/L (39-308) Troponin I High Sensitivity 76 ng/L (4-75) 63 ng/L (4-75) 62 ng/L (4-75) GX-Adt-T-Type Natriuretic Peptide 11 pg/mL (0-124) Total Protein 7.6 g/dL (6.4-8.2) Albumin 4.0 g/dL (3.4-5.0) Albumin/Globulin Ratio 1.1 (1.0-1.7) Lipase 138 U/L (73-393) Urine Collection Type Unknown Urine Color (Auto) Light yellow Urine Turbidity Clear Urine pH (Auto) 6.0 (<5.0-8.0) Urine Specific [place] >1.050 (1.000-1.030) Urine Protein (Auto) 50 mg/dL (Negative) Urine Glucose (Auto)(UA) Negative mg/dL (Negative) Urine Ketones (Auto) 80 mg/dL (Negative) Urine Blood (Auto) Moderate (Negative) Urine Nitrite Negative (Negative) Urine Bilirubin (Auto) Negative (Negative) Urine Urobilinogen (Auto) Normal mg/dL (Normal) Urine Leukocyte Esterase (Auto) Negative (Negative) Urine RBC Occ /HPF (0-2) Urine WBC Occ /HPF (0-4) Urine Squamous Epithelial Cells Occ /LPF Urine Bacteria 0 /HPF (0-FEW) Test 02/01/22 11:20 Creatine Kinase 83103 U/L (39-308) Review All relevant outside records, renal labs, imaging studies, telemetry/EKG's were reviewed. ALIZE AMADOR MD Feb 01, 2022 13:15
[2022-02-01 15:00] VITALS: BP 140/64
[2022-02-01 19:47] VITALS: BP 140/75
[2022-02-01 23:03] VITALS: BP 128/84
[2022-02-02 03:11] VITALS: BP 119/81
[2022-02-02 07:00] VITALS: BP 127/76
[2022-02-02 07:54] LABS: ALBUMIN 3.5 g/dL (3.4-5.0); ALBUMIN/GLOBULIN RATIO 1.1 (1.0-1.7); CALCIUM 8.3 mg/dL (8.5-10.1); GFR 105.5; POTASSIUM 3.9 mmol/L (3.5-5.1); TOTAL BILIRUBIN 0.4 mg/dL (0.2-1.0); TOTAL PROTEIN 6.7 g/dL (6.4-8.2)
[2022-02-02] MEDS ORDERED: ASPIRIN ENTERIC COATED 81 MG TABLET.DR. PO SCH (08:00)
[2022-02-02] MEDS: IV NORMAL SALINE 1000ML BAG 1,000 ML IV SCH (09:05)
--- NOTE | 2022-02-02 10:18 | PDOC3 ---
[facility]-Discharge Summary Date of Admission: Date of Admission: Feb 01, 2022 Date of Discharge: Date of Discharge: Feb 02, 2022 Admission Diagnosis: Admitting Diagnosis: chest pain, rhabdo Hospital Course: Hospital Course: Assessment/Plan Acute rhabdomyolysis Severe transaminitis Atypical chest pain, likely musculoskeletal rule out ACS Obesity class I Admit to hospitalist service for further management Cardiology consult Continue telemetry monitoring Nephrology consult for rhabdomyolysis Strict I's/O Avoid nephrotoxic agents Monitor urine output closely Continue aggressive IV fluid rehydration Pending hepatitis panel Trend liver enzymes Trend CK levels SCD and ambulation for DVT prophylaxis Regular diet CODE STATUS full Discussed with RN and SW Disposition inpatient management as above DPOA: Father 02/02 Patient evaluated examined at bedside. Walking around the room without any complaint. Asking about discharge. Liver enzymes and CK trending in right direction, still very elevated. Only intervention right now IV fluids. Patient said he can increase his water intake at home. Agree with this. Discharge home today. Great 30 minutes spent on discharge. 19 minutes advance care planning. Disposition: Disposition/Orders: D/C to Home Activity: Activity: Resume previous activity Diet: Diet: Regular Medications: Home Meds Reported Medications Info (NO KNOWN MEDICATIONS PRIOR TO ADMISSTION) Each, 1 EACH MC 1X for no known medications, EACH 02/01/22 Scheduled Info (No Known Medications Prior To Admisstion), 1 EACH MC 1X, (Reported) Justicifation of Admission Dx: Justifications for Admission: Justification of Admission Dx: Yes (rhabdo) RAGHAV DOYLE MD Feb 02, 2022 10:18
[2022-02-02 11:00] VITALS: BP 145/81
--- NOTE | 2022-02-02 11:16 | PDOC ---
DATE OF SERVICE DATE: 02/02/22 TIME: 11:15 SUBJECTIVE ROS Denies any complaint- No CP or SOB. No N/V OBJECTIVE Vital Signs Vital Signs Date Time Temp Pulse Resp B/P (MAP) Pulse Ox O2 Delivery O2 Flow Rate FiO2 02/02/22 11:00 98.3 73 18 145/81 (102) 97 Room Air 98.3 I & 0 Intake and Output 02/02/22 07:00 Intake Total 5880 ml Output Total 2800 ml Balance 3080 ml Intake Oral 880 ml IV Total 5000 ml Output Urine Total 2800 ml # Voids 3 PHYSICAL EXAM Physical Exam General NAD HEEN OM moist Neck supple Lungs CTA, Non labored CV S1S2 Ext No LE edema Abd soft, NT No Barnes Neuro Grossly Normal DIAGNOSIS/ASSESSMENT Assessment & Plan Rhabdomyolysis: Check serial CPKs Continue IV fluids as you are doing, CPKs trending downwards, still 46 K, recommend inpatient monitoring . SUZETTE RN . Monitor urine output closely . Close fu with PCP (CK and BMP) post discharge Illicit Drug use- Positive for Cocaine and Cannabinoids, pt denies TONEY POa- mild, Resolved COMMENT/RELEVANT DATA Meds Current Medications Medications (Trade) Dose Ordered Sig/Alma Start Time Stop Time Status Last Admin Dose Admin Acetaminophen (Tylenol) 650 mg PRN Q6HRS PRN 02/01/22 07:45 Aspirin (Ecotrin) 81 mg DAILYWBKFT 02/02/22 08:00 02/02/22 09:04 81 MG Fentanyl Citrate (Fentanyl 2ml Vial) 25 mcg PRN Q3HRS PRN 02/01/22 07:45 Info (CONTRAST GIVEN -- Rx MONITORING) 1 each PRN DAILY PRN 02/01/22 04:00 02/03/22 03:59 Iohexol (Omnipaque 350 Mg/ml) 75 ml 1X ONCE 02/01/22 04:30 02/01/22 04:31 DC 02/01/22 04:57 75 ML Ketorolac Tromethamine (Toradol 15mg Vial) 15 mg 1X ONCE 02/01/22 03:00 02/01/22 03:01 DC Nitroglycerin (Nitrostat) 0.4 mg PRN Q5MIN PRN 02/01/22 07:45 Ondansetron HCl (Zofran) 4 mg PRN Q4HRS PRN 02/01/22 07:45 Sodium Chloride 1,000 ml @ 200 mls/hr Q5H 02/01/22 07:30 02/02/22 08:29 DC 02/02/22 09:05 200 MLS/HR Tramadol HCl (Ultram) 50 mg PRN Q6HRS PRN 02/01/22 07:45 02/02/22 09:13 50 MG Lab Laboratory Tests Test 02/01/22 11:20 02/02/22 06:35 Creatine Kinase 78140 U/L (39-308) 69653 U/L (39-308) Sodium Level 140 mmol/L (136-145) Potassium Level 3.9 mmol/L (3.5-5.1) Chloride Level 106 mmol/L (98-107) Carbon Dioxide Level 28 mmol/L (21-32) Anion Gap 6 (6-14) Blood Urea Nitrogen 7 mg/dL (8-26) Creatinine 1.0 mg/dL (0.7-1.3) Estimated GFR (Cockcroft-Gault) 105.5 BUN/Creatinine Ratio 7 (6-20) Glucose Level 87 mg/dL (70-99) Calcium Level 8.3 mg/dL (8.5-10.1) Total Bilirubin 0.4 mg/dL (0.2-1.0) Aspartate Amino Transf (AST/SGOT) 1012 U/L (15-37) Alanine Aminotransferase (ALT/SGPT) 662 U/L (16-63) Alkaline Phosphatase 44 U/L (46-116) Total Protein 6.7 g/dL (6.4-8.2) Albumin 3.5 g/dL (3.4-5.0) Albumin/Globulin Ratio 1.1 (1.0-1.7) Results All relevant outside records, renal labs, imaging studies, telemetry/EKG's were reviewed. Justicifation of Admission Dx: Justifications for Admission: Justification of Admission Dx: Yes (rhabdo) TERESA JIMENEZ MD Feb 02, 2022 11:16
--- NOTE | 2022-02-02 12:20 | PDOC ---
KELLY HAYWARD FIBRE CEMENT MOULDER 02/02/22 1220: CARDIO Progress Notes Date and Time Date of Service 02/02/22 Time of Evaluation 1215 Subjective Subjective: No Chest Pain, No shortness of breath, No Palpitations Vitals Vitals Vital Signs Date Time Temp Pulse Resp B/P (MAP) Pulse Ox O2 Delivery O2 Flow Rate FiO2 02/02/22 11:00 98.3 73 18 145/81 (102) 97 Room Air 98.3 Weight Weight [ ] Input and Output Intake and Output Intake and Output 02/02/22 07:00 Intake Total 5880 ml Output Total 2800 ml Balance 3080 ml Intake Oral 880 ml IV Total 5000 ml Output Urine Total 2800 ml # Voids 3 Laboratory Labs Laboratory Tests Test 02/02/22 06:35 Sodium Level 140 mmol/L (136-145) Potassium Level 3.9 mmol/L (3.5-5.1) Chloride Level 106 mmol/L (98-107) Carbon Dioxide Level 28 mmol/L (21-32) Anion Gap 6 (6-14) Blood Urea Nitrogen 7 mg/dL (8-26) Creatinine 1.0 mg/dL (0.7-1.3) Estimated GFR (Cockcroft-Gault) 105.5 BUN/Creatinine Ratio 7 (6-20) Glucose Level 87 mg/dL (70-99) Calcium Level 8.3 mg/dL (8.5-10.1) Total Bilirubin 0.4 mg/dL (0.2-1.0) Aspartate Amino Transf (AST/SGOT) 1012 U/L (15-37) Alanine Aminotransferase (ALT/SGPT) 662 U/L (16-63) Alkaline Phosphatase 44 U/L (46-116) Creatine Kinase 58917 U/L (39-308) Total Protein 6.7 g/dL (6.4-8.2) Albumin 3.5 g/dL (3.4-5.0) Albumin/Globulin Ratio 1.1 (1.0-1.7) Physical Exam HEENT: Neck Supple W Full Motion Chest: Symmetric LUNGS: Clear to Auscultation Heart: RRR Abdomen: Soft N/T Extremities: No Edema (heart tones regular, off tele) Neurology: alert, oriented, follow commands Assessment Assessment 1. Rhabdomyolysis; s/p IV hydration 2. Mild TONEY 3. Transaminitis 4. Polysubstance abuse; UDS + cocaine, marijuana Recommendations Supportive care Reinforced cessation from recreational drug use. Okay to discharge from a CV standpoint Justicifation of Admission Dx: Justifications for Admission: Justification of Admission Dx: Yes (rhabdo) SELINA HAIR MD 02/02/22 1644: CARDIO Progress Notes Plan Plan The patient was seen and interviewed as well as examined at the bedside. The chart was reviewed. The case was discussed. Agree with the plan of care. KELLY HAYWARD APRN Feb 02, 2022 12:20 SELINA HAIR MD Feb 02, 2022 16:44
[2022-02-02 12:21] LABS: BARBITURATES NEG (NEG); BENZODIAZEPINES NEG (NEG); CANNABINOIDS POS (NEG); COCAINE POS (NEG); METHADONE NEG (NEG); OPIATES NEG (NEG); PHENCYCLIDINE NEG (NEG)
[2022-02-02 12:22] LABS: AMPHETAMINE/METHAMPHETAMINE NEG (NEG)
[2022-02-02 15:00] VITALS: BP 152/92
--- NOTE | 2022-02-02 15:15 | NUR ---
Spoke with Dr. Arrington regarding Dr. Araujo's concern for discharge d/t still extremely elevated CK, also spoke with patient in regards to her concerns. Patient is needing to discharge because of work, he has been made aware of possible complications. Per Dr. Arrington patient is ok to discharge and follow up with PCP to closely monitor CK, he has verbalized that he told Dr. Arrington he would consume alot of water.
--- NOTE | 2022-02-02 17:37 | NUR ---
Discharge Note: JONAH SERRATO Discharge instructions and discharge home medications reviewed with Patient and a copy given. All questions have been answered and understanding verbalized. The following instructions and handouts were given: follow up instructions, worsening symptoms, and Rhabdommyolosis information. Discontinued lines and drains: IV discontinued from Rt AC and Rt hand, telemetry removed and skin intact. Patient discharged to home with self care, via private vehicle.
== END 2022-02-02 18:39 | disposition home or self-care (01) | DRG 558 ==
LOC: ER 01:45 → 5 NORTH 03:48 → OBSVTOIN 07:33
PROVIDERS: ADMIT Internal Medicine; ATTEND Internal Medicine
DX: M62.82 Rhabdomyolysis (principal); I42.9 Cardiomyopathy, unspecified; N17.9 Acute kidney failure, unspecified; I24.9 Acute ischemic heart disease, unspecified; F12.10 Cannabis abuse, uncomplicated; F14.10 Cocaine abuse, uncomplicated; Z82.49 Family history of ischemic heart disease and other diseases of the circulatory system; R74.01 Elevation of levels of liver transaminase levels; E66.9 Obesity, unspecified; Z68.32 Body mass index [BMI] 32.0-32.9, adult; R07.89 Other chest pain
CPT/HCPCS: 36415; 71045; 71275; 80048; 80053; 80307; 81001; 82550; 83690; 83735; 83880; 84484; 85025; 85379; 86705; 86709; 86803; 87340; 93005; G0378; G0379; J7030; Q9967; 99285-25